=== PATIENT | male | born 1995 | race Caucasian/White ===

== ENCOUNTER 2017-02-19 16:24 | Emergency (ER) | payer OTHER ==
[~2017-02-19] VITALS: Ht 172.7 cm; Wt 58.3 kg
[2017-02-19 17:01] VITALS: Ht 172.7 cm; Wt 58.3 kg
[2017-02-19 20:21] VITALS: BP 118/68
== END 2017-02-19 20:21 | disposition home or self-care (01) ==
LOC: ED 16:24
DX: J45.909 Unspecified asthma, uncomplicated (principal)
CPT/HCPCS: J7512

== ENCOUNTER 2017-11-22 00:11 | Emergency (ER) | payer OTHER ==
[~2017-11-22] VITALS: Ht 172.7 cm; Wt 59.5 kg
[2017-11-22 00:20] VITALS: Ht 172.7 cm; Wt 59.5 kg
[2017-11-22 02:45] VITALS: BP 135/84
== END 2017-11-22 02:45 | disposition home or self-care (01) ==
LOC: ED 00:11
DX: J45.901 Unspecified asthma with (acute) exacerbation (principal)
CPT/HCPCS: J0171; J7512; J7613; J7644; Q0162

== ENCOUNTER 2017-12-01 10:28 | Inpatient (IN) | payer OTHER ==
[~2017-12-01] VITALS: Ht 172.7 cm; Wt 57.4 kg
[2017-12-01 10:32] VITALS: Ht 172.7 cm; Wt 57.4 kg
[2017-12-01 11:38] LABS: CALCIUM 9.7 mg/dL (8.5-10.1); CARBON DIOXIDE 29.5 mmol/L (21-32); CHLORIDE SERUM 97 mmol/L (98-107); CREATININE SERUM 0.8 mg/dL (0.7-1.3); GFR1 > 60 mL/min; GLUCOSE SERUM 110 mg/dL (74-106); POTASSIUM SERUM 4.2 mmol/L (3.5-5.1); SODIUM SERUM 134 mmol/L (136-145)
[2017-12-01 11:42] LABS: ALKALINE PHOSPHATASE 122 U/L (46-116); ALT/SGPT 21 U/L (16-63); AST/SGOT 12 U/L (15-37); LIPASE 187 IU/L (73-393)
[2017-12-01 11:47] LABS: BASOPHIL % 0.4 % (0-2); PLATELET COUNT 280 x10^3mcL (130-400); RED CELL DISTRIBUTION WIDTH 13.8 % (11.5-14.5)
[2017-12-01] MEDS ORDERED: PROINH INH (15:17)
[2017-12-01 17:39] VITALS: BP 114/72
[2017-12-01 20:32] VITALS: BP 119/79
[2017-12-02 06:09] VITALS: BP 105/69
[2017-12-02 06:18] LABS: CALCIUM 8.6 mg/dL (8.5-10.1); CARBON DIOXIDE 27.1 mmol/L (21-32); CHLORIDE SERUM 102 mmol/L (98-107); CREATININE SERUM 0.6 mg/dL (0.7-1.3); GFR1 > 60 mL/min; GLUCOSE SERUM 107 mg/dL (74-106); POTASSIUM SERUM 3.8 mmol/L (3.5-5.1); SODIUM SERUM 136 mmol/L (136-145)
[2017-12-02 07:41] LABS: PLATELET COUNT 247 x10^3mcL (130-400); RED CELL DISTRIBUTION WIDTH 14.2 % (11.5-14.5)
[2017-12-02 07:42] LABS: MONOCYTE 9 % (0-7); PLATELET MORPHOLOGY N; SEGMENTED NEUTROPHILS 85 % (37-75)
[2017-12-02 07:46] LABS: rbc morphology (normal/abnorm) ABNORMAL (NORMAL)
[2017-12-02 08:48] VITALS: BP 109/64
[2017-12-02 11:44] VITALS: BP 109/64
== END 2017-12-02 15:02 | disposition home or self-care (01) | DRG 234 ==
LOC: ED 10:28 → MU 14:38
PROVIDERS: Emergency Medicine; Internal Medicine Pulmonary Disease; Surgery
PROC: 0DTJ4ZZ Resection of Appendix, Percutaneous Endoscopic Approach (ICD-10-PCS; principal; 2017-12-01 15:00)
DX: K35.80 Unspecified acute appendicitis (principal); D72.829 Elevated white blood cell count, unspecified; F41.9 Anxiety disorder, unspecified; J45.909 Unspecified asthma, uncomplicated; Z88.6 Allergy status to analgesic agent; Z88.8 Allergy status to other drugs, medicaments and biological substances; Z23 Encounter for immunization
CPT/HCPCS: 90658; J0171; J0330; J0690; J0696; J1885; J2175; J2250; J2270; J2550; J2930; J3010; J3490; J7030; J7613; J7644; Q0163; Q9967

== ENCOUNTER 2018-05-23 11:17 | Emergency (ER) | payer OTHER ==
[~2018-05-23] VITALS: Ht 170.2 cm; Wt 63.5 kg
[~2018-05-23 11:17] MED LIST: PROINH INH
[2018-05-23 11:23] VITALS: Ht 170.2 cm; Wt 63.5 kg
[2018-05-23 14:35] VITALS: BP 101/68
== END 2018-05-23 14:35 | disposition home or self-care (01) ==
LOC: ED 11:17
DX: J45.901 Unspecified asthma with (acute) exacerbation (principal); Z90.49 Acquired absence of other specified parts of digestive tract
CPT/HCPCS: J2930; J7030; J7613; J7620; Q0092

== ENCOUNTER 2018-07-28 05:36 | Emergency (ER) | payer OTHER ==
[~2018-07-28] VITALS: Ht 172.7 cm; Wt 61.9 kg
[2018-07-28 05:44] VITALS: Ht 172.7 cm; Wt 61.9 kg
[2018-07-28 08:32] LABS: UA SPECIFIC GRAVITY >=1.030 (1.005-1.035); microscopic required? YES; urine erythrocyte 3+ (NEGATIVE)
[2018-07-28 09:50] VITALS: BP 134/79
== END 2018-07-28 09:50 | disposition home or self-care (01) ==
LOC: ED 05:36
PROVIDERS: Emergency Medicine
DX: N34.2 Other urethritis (principal); J45.909 Unspecified asthma, uncomplicated; Z90.89 Acquired absence of other organs
CPT/HCPCS: 87491; 87591; J0696

== ENCOUNTER 2018-09-16 16:44 | Emergency (ER) | payer OTHER ==
[~2018-09-16] VITALS: Ht 172.7 cm; Wt 58.5 kg
[2018-09-16 16:53] VITALS: Ht 172.7 cm; Wt 58.5 kg
[2018-09-16 17:59] VITALS: BP 126/81
== END 2018-09-16 17:59 | disposition home or self-care (01) ==
LOC: ED 16:44
DX: S62.501A Fracture of unspecified phalanx of right thumb, initial encounter for closed fracture (principal); J45.909 Unspecified asthma, uncomplicated; Z90.49 Acquired absence of other specified parts of digestive tract; W22.8XXA Striking against or struck by other objects, initial encounter; Y93.89 Activity, other specified; Y92.89 Other specified places as the place of occurrence of the external cause; Y99.8 Other external cause status

== ENCOUNTER 2018-11-27 16:43 | Emergency (ER) | payer OTHER ==
[~2018-11-27] VITALS: Ht 172.7 cm; Wt 60.8 kg
[2018-11-27 16:50] VITALS: Ht 172.7 cm; Wt 60.8 kg
[2018-11-27 18:58] VITALS: BP 126/83
== END 2018-11-27 18:58 | disposition home or self-care (01) ==
LOC: ED 16:43
DX: J45.909 Unspecified asthma, uncomplicated (principal); Z90.89 Acquired absence of other organs

== ENCOUNTER 2019-04-08 05:48 | Emergency (ER) | payer OTHER ==
[~2019-04-08] VITALS: Ht 172.7 cm; Wt 61.5 kg
[2019-04-08 05:52] VITALS: Ht 172.7 cm; Wt 61.5 kg
[2019-04-08 07:23] VITALS: BP 118/82
== END 2019-04-08 07:23 | disposition home or self-care (01) ==
LOC: ED 05:48
DX: J45.901 Unspecified asthma with (acute) exacerbation (principal); Z90.89 Acquired absence of other organs
CPT/HCPCS: J7512; J7620; Q0092

== ENCOUNTER 2020-01-07 17:52 | Emergency (ER) | payer OTHER ==
[~2020-01-07] VITALS: Ht 172.7 cm; Wt 71.7 kg
[2020-01-07 17:52] VITALS: Ht 172.7 cm; Wt 71.7 kg
[2020-01-07 19:44] VITALS: BP 138/57
== END 2020-01-07 19:44 | disposition home or self-care (01) ==
LOC: ED 17:52
DX: J45.901 Unspecified asthma with (acute) exacerbation (principal); Z20.828 Contact with and (suspected) exposure to other viral communicable diseases; Z90.89 Acquired absence of other organs
CPT/HCPCS: J7512; U0003

== ENCOUNTER 2020-01-31 09:50 | Emergency (ER) | payer OTHER, SELFPAY ==
[~2020-01-31] VITALS: Ht 172.7 cm; Wt 68.0 kg
[2020-01-31 09:52] VITALS: BP 135/94; Ht 172.7 cm; Wt 68.0 kg
== END 2020-01-31 10:32 | disposition home or self-care (01) ==
LOC: ED 09:50
DX: J45.901 Unspecified asthma with (acute) exacerbation (principal); Z20.828 Contact with and (suspected) exposure to other viral communicable diseases; Z90.49 Acquired absence of other specified parts of digestive tract
CPT/HCPCS: U0003